=== PATIENT | male | born 1990 | race Caucasian/White ===

== ENCOUNTER 2018-09-26 01:19 | Inpatient (IN) ==
[2018-09-26] MEDS ORDERED: Acetaminophen 325 MG Tablet PO PRN (04:14)
[2018-09-26] MEDS ORDERED: Bisacodyl 10 MG Supp RECTAL PRN (04:14)
[2018-09-26] MEDS ORDERED: dilTIAZem Inj 125 MG in Sodium Chlor 0.9% Inj 100 ML IV.CONT PRN (09:05)
--- NOTE | 2018-09-26 09:09 | P.HP ---
History of Present Illness Primary Care Physician: No Primary Care Physician Chief Complaint: Chest Pain History of Present Illness: This is a pleasant 27 y/o male initially went to [facility] with chief complaint of shortness of breath and palpitations. He states that his daughter woke up screaming and startled him out of his sleep and ever since he is noticed his heart is been racing. He had one prior episode while he was in the however his symptoms alleviated in route to the hospital. This was a few years ago and he has not had any episodes until tonight. Denied any toxic habit, denies any medicine use. Started on Diltiazem Drip and transferred to Intensive Care Unit on [address] [place] consulted asw specialist. Inpatient Certification: I certify that the inpatient services were ordered in accordance with Medicare regulations governing the order. This includes certification that hospital inpatient services are reasonable and necessary and in the case of services not specified as inpatient-only under 42 CFR 419.22(n), that they are appropriately provided as inpatient services in accordance to with the 2-midnight benchmark under 43 CFR 412.3(e) Review of Systems All other systems reviewed negative except as stated in HPI PMFSH - History History Provided By: Patient - Medical History Medical History: Medical History (Last Updated 09/26/18 @ 01:34 by Jeri Templeton RN) Patient denies medical problems - Surgical History Surgical History: Surgical History (Last Updated 09/26/18 @ 01:34 by Jeri Templeton RN) Hx of shoulder surgery - Family History Family History: Family History (Last Updated 09/26/18 @ 15:19 by Roni Matthew MD) Mother Family history of hypertension - Tobacco History Second Hand Smoke Exposure: No Smoking Status: Never smoker - Alcohol History How Often Do You Have a Drink Containing Alcohol: Monthly or less - Substance Use History Substance History: No History of Abuse Medications and Allergies Active Medications: Active Medications Acetaminophen (Tylenol) 650 mg PO Q4H PRN PRN Reason: Temp > 100.4 Bisacodyl (Dulcolax Supp) 10 mg RECTAL DAILY PRN PRN Reason: SEVERE CONSITIPATION Chlorhexidine Gluconate (Chlorhexidine 2% Cloth) 3 pack TOPICAL DAILY@0400 [facility] Stop: 10/02/18 03:59 Chlorhexidine Gluconate (Chlorhexidine 2% Cloth) 3 pack TOPICAL DAILY@0400 PRN PRN Reason: Extra cloth needed Stop: 10/02/18 03:59 Ondansetron HCl (Zofran Inj) 4 mg IV.PUSH Q6H PRN PRN Reason: NAUSEA OR VOMITING Sennosides (Senokot) 17.2 mg PO Q12H PRN PRN Reason: Moderate Constipation Allergies Allergy/AdvReac Type Severity Reaction Status Date / Time No Known Allergies Allergy Verified 09/26/18 01:32 Home Medications Medication Instructions Recorded Confirmed Type No Known Home Medications 09/26/18 09/26/18 History Exam Narrative: GENERAL: No acute distress. SKIN: Focused skin assessment warm/dry. HEAD: Atraumatic. Normocephalic. EYES: Pupils equal and round. No scleral icterus. No injection or drainage. ENT: No nasal bleeding or discharge. Mucous membranes pink and moist. NECK: Trachea midline. No JVD. CARDIOVASCULAR: Irregular heart rate noted at in a regular rate of approximately 150 bpm RESPIRATORY: No accessory muscle use. Clear to auscultation. Breath sounds equal bilaterally. GASTROINTESTINAL: Abdomen soft, non-tender, nondistended. Hepatic and splenic margins not palpable. MUSCULOSKELETAL: No obvious deformities. No clubbing. No cyanosis. No edema. NEUROLOGICAL: Awake and alert. No obvious cranial nerve deficits. Motor grossly within normal limits. Normal speech. PSYCHIATRIC: Appropriate mood and affect; insight and judgment normal. Caprini VTE Risk Assessment Caprini VTE Risk Assessment: Moderate/High Risk (score >= 2) Caprini Risk Assessment Model: Point Value = 1 Point Value = 2 Point Value = 3 Point Value = 5 Age 41-60 Minor surgery BMI > 25 kg/m2 Swollen legs Varicose veins or History of unexplained or recurrent spontaneous Oral contraceptives or hormone replacement Sepsis (< 1 month) Serious lung disease, including pneumonia (< 1 month) Abnormal pulmonary function Acute myocardial infarction Congestive heart failure (< 1 month) History of inflammatory bowel disease Medical patient at bed rest Age 61-74 Arthroscopic surgery Major open surgery (> 45 min) Laparoscopic surgery (> 45 min) Malignancy Confined to bed (> 72 hours) Immobilizing plaster cast Central venous access Age >= 75 History of VTE Family history of VTE Factor V Leiden Prothrombin [id number] Lupus anticoagulant Anticardiolipin antibodies Elevated serum homocysteine Heparin-induced thrombocytopenia Other congenital or acquired thrombophilia Stroke (< 1 month) Elective arthroplasty Hip, pelvis, or leg fracture Acute spinal cord injury (< 1 month) Prophylaxis Regimen: Total Risk Factor Score Risk Level Prophylaxis Regimen 0-1 Low Early ambulation 2 Moderate Order ONE of the following: *Sequential Compression Device (SCD) *Heparin 5000 units SQ BID 3-4 Higher Order ONE of the following medications: *Heparin 5000 units SQ TID *Enoxaparin/Lovenox 40 mg SQ daily (WT < 150 kg, CrCl > 30 mL/min) *Enoxaparin/Lovenox 30 mg SQ daily (WT < 150 kg, CrCl > 10-29 mL/min) *Enoxaparin/Lovenox 30 mg SQ BID (WT < 150 kg, CrCl > 30 mL/min) AND/OR *Sequential Compression Device (SCD) 5 or more Highest Order ONE of the following medications: *Heparin 5000 units SQ TID (Preferred with Epidurals) *Enoxaparin/Lovenox 40 mg SQ daily (WT < 150 kg, CrCl > 30 mL/min) *Enoxaparin/Lovenox 30 mg SQ daily (WT < 150 kg, CrCl > 10-29 mL/min) *Enoxaparin/Lovenox 30 mg SQ BID (WT < 150 kg, CrCl > 30 mL/min) AND *Sequential Compression Device (SCD) Assessment and Plan - Plan 1. Atrial Fibrillation with RVR on Cardizem Drip also giving Metoprolol by mouth 25 mg BID Cardiology consult, Echocardiogram. awaiting final by specialist no other medical problems CHADS2 VASC Score 0 DVT prophylaxis with Lovenox. Code Status: Full code. Discussed Condition With: Patient, his and Nurse Miss Sue Discharge Planning: Once cleared by Cardiology
[2018-09-26 10:51] LABS: Chol/HDL Ratio 3.47 Ratio; HDL Cholesterol 46.1 mg/dL (40.0-60.0)
--- NOTE | 2018-09-26 11:37 | MB ---
cc: Sam Luna MD DATE: 09/26/2018 HISTORY OF PRESENT ILLNESS: Gavin is a very pleasant 27-year-old gentleman with no significant past medical history, who was startled by his daughter crying in the middle of the night and then developed palpitations. Was seen in [place] and transferred to [facility]. Reportedly, was in atrial fibrillation; however, his EKG is not available. However, the bedside telemetry shows atrial fibrillation with rapid ventricular response, despite being on a Cardizem drip. In discussing the patient's history, he denies any use of stimulants or decongestants, weight loss supplements, although he has lost weight 15 pounds in the recent history prior to admission. He denies excessive activity. He is controlling his weight with diet. He does drink coffee, but not any more than usual. He has palpitations and some dyspnea but denies chest pain, fevers, chills, cough, GI or bleeding, PND, orthopnea, syncope, or dizziness. PAST MEDICAL HISTORY: As per history of present illness ALLERGIES: HE HAS NO KNOWN ALLERGIES. SOCIAL HISTORY: He rarely drinks alcohol. Denies tobacco use. MEDICATIONS IN THE HOSPITAL: Cardizem drip. PHYSICAL EXAMINATION: VITAL SIGNS: Not charted. He does have a heart rate in the 120s in atrial fibrillation on the monitor. Again, there are no charted blood pressures in the computer. GENERAL: He is alert and oriented x3, in no acute distress. NECK: Supple. No JVD. No bruit. CARDIOVASCULAR: S1, S2. No murmurs, rubs or gallops. LUNGS: Clear to auscultation bilaterally. ABDOMEN: Soft, nontender, nondistended with positive bowel sounds. EXTREMITIES: Lower extremity edema. LABORATORY DATA: His EKG shows atrial fibrillation at a rate of 132 beats per minute. Intervals are normal. Chest x-ray, no acute cardiopulmonary disease. White count 9.4, hemoglobin 16.9, hematocrit 49.4, platelet count 206. INR is 1.0. Sodium 143, potassium 3.4, chloride 104, bicarbonate 29.0, BUN 18, creatinine 1.20. Troponin less than 0.02. LFTs normal. Tox screen is negative. DIAGNOSES: 1. Atrial fibrillation with rapid ventricular response. 2. Palpitations. 3. Dyspnea. DISCUSSION: By history and physical, the patient's CHADS-VASc score is 0. We will need to get a 2-D echocardiogram. Continue Cardizem drip. I am going to start him on beta anthony. He does not appear to have any obvious precipitating factor, although his TSH has not been checked, so we will need to check his TSH. Further recommendations based on the result of his 2-D echocardiogram, and a trend and heart rate and blood pressure and TSH results. MD MILA Ruiz/aniyah , 09:48 AM , 09:57 AM
[2018-09-26] MEDS ORDERED: Metoprolol Tartrate 25 MG Tablet PO SCH (12:30)
[2018-09-26 14:29] LABS: Hemoglobin A1c 4.7 % (4.3-6.0)
[2018-09-26] MEDS: Metoprolol Tartrate 50 MG Tablet PO SCH (21:13)
--- NOTE | 2018-09-26 22:37 | MB ---
cc: Bee Romero MD DATE: 09/26/2018 REFERRING PHYSICIAN: Dr. Luna. REASON FOR CONSULTATION: Management of atrial fibrillation. HISTORY OF PRESENT ILLNESS: Mr. Ortiz is 27-year-old gentleman, presented to [place] [facility] with a new onset atrial fibrillation. He was startled during sleep by his daughter who was crying and noticed palpitations along with dyspnea. He came to the [facility], was noted to have atrial fibrillation with tachycardia. He has been admitted, put on Cardizem drip, so far heart rate in the 80s. He denies any recent binge drinking or recreational drug usage. So far, no TIA or CVA in the past. Denies any energy drink usage. He rarely drinks. Again, there is no binge drinking. I reviewed the tele, so far showed atrial fibrillation with controlled rate. There is no obvious preexcitation. According to her, he had a similar episode about a year ago at [place], so far workup at that time did not show any significant findings. I did order the EKG today. Of note, his mother also had SVT, had ablation in the past. PAST MEDICAL HISTORY: As above. ALLERGIES: NO KNOWN DRUG ALLERGIES. SOCIAL HISTORY: He rarely drinks alcohol. He does not smoke, does not use any recreational drug usage. MEDICATIONS: Currently including Cardizem drip. REVIEW OF SYSTEMS: HEENT: Normal. GASTROINTESTINAL: No nausea or vomiting. GENITOURINARY: No dysuria. MUSCULOSKELETAL: Fatigue. CARDIOVASCULAR: As above. CHEST: Some dyspnea. ENDOCRINE: Normal. SKIN: Normal. PSYCHIATRIC: Normal. CENTRAL NERVOUS SYSTEM: No dizziness. PHYSICAL EXAMINATION: VITAL SIGNS: The patient has blood pressure of 105/60 with pulse in the 80s on Cardizem drip. O2 saturation is 99%. HEENT: Normal oral exam. PERRLA. ENDOCRINE: There is no thyroid enlargement. LYMPHATICS: There is no lymphadenopathy. RESPIRATORY: Decreased breath sounds bilaterally, but no crackles. CARDIOVASCULAR: Irregular. No tachycardia. Heart rate controlled. No loud murmurs. GASTROINTESTINAL: Active bowel sounds in all 4 quadrants. GENITOURINARY: Deferred. MUSCULOSKELETAL: All range of motion intact. SKIN: There is no ecchymosis. PSYCHIATRIC: The patient has good mood and good judgment. ASSESSMENT: 1. New onset atrial fibrillation with tachycardia. 2. Palpitations and dyspnea. PLAN: I agree with Dr. Luna. I will get an echocardiogram to assess LV systolic function, valve function, but he did have echocardiogram, which was done about a year ago in [place]. According to him, it did not reveal any significant findings. I will add aspirin 162 mg daily and increase metoprolol to 50 mg b.i.d. if the BP can tolerate and start the Cardene drip. Hopefully, he will convert soon. If he does not convert, may consider anticoagulation such as Eliquis or Xarelto. Consider NICKY and cardioversion versus ablation for the future. We will also check the thyroid function including TSH. Again, the patient denied binge drinking. So far, there is no preexcitation seen. I ordered an EKG, but there is a possibility of concealed bypass tract, which can predispose him for atrial fibrillation. Hopefully, he can go home over the weekend and have a close outpatient followup. I would like to thank Dr. Luna for letting me participate in the care of Mr. Ortiz. Bee Romero MD HW/sv/do , 08:22 PM , 08:33 PM
[2018-09-27] MEDS ORDERED: Chlorhexidine Gluconate 2% 1 Pack (2 Cloths) TOPICAL PRN (04:00)
[2018-09-27] MEDS: Chlorhexidine Gluconate 2% 1 Pack (2 Cloths) TOPICAL SCH (04:40)
[2018-09-27 05:05] LABS: Anion Gap 7 meq/L (5-15); Aspartate Aminotransferase 13 U/L (15-37); Blood Urea Nitrogen 16 mg/dL (7-18); Calcium 8.8 mg/dL (8.5-10.1); Carbon Dioxide 29.4 meq/L (21.0-32.0); Chloride 104 meq/L (98-107); Glomerular Filtration Rate 75 mL/min (>89); Glucose,Random 90 mg/dL (74-106); Potassium 4.4 meq/L (3.5-5.1); Sodium 140 meq/L (136-145)
[2018-09-27 05:16] LABS: Alanine Aminotransferase 23 U/L (12-78); Alkaline Phosphatase 80 U/L (45-117); Free T4 (Free Thyroxine) 0.93 ng/dL (0.76-1.46); Total Protein 7.8 g/dL (6.4-8.2)
[2018-09-27] MEDS: Metoprolol Tartrate 50 MG Tablet PO SCH (08:47)
--- NOTE | 2018-09-27 09:26 | P.PNCA ---
Subjective Interval history: alert in nad Medications and Allergies Active Medications: Active Medications Acetaminophen (Tylenol) 650 mg PO Q4H PRN PRN Reason: Temp > 100.4 Aspirin (Aspirin Chew) 162 mg PO DAILY [facility] Last Admin: 09/27/18 08:47 Dose: 81 mg Bisacodyl (Dulcolax Supp) 10 mg RECTAL DAILY PRN PRN Reason: SEVERE CONSITIPATION Chlorhexidine Gluconate (Chlorhexidine 2% Cloth) 3 pack TOPICAL DAILY@0400 [facility] Stop: 10/02/18 03:59 Last Admin: 09/27/18 04:40 Dose: Not Given Chlorhexidine Gluconate (Chlorhexidine 2% Cloth) 3 pack TOPICAL DAILY@0400 PRN PRN Reason: Extra cloth needed Stop: 10/02/18 03:59 Digoxin (Lanoxin Inj) 500 mcg IV.PUSH ONCE ONE Stop: 09/27/18 09:24 Metoprolol Tartrate (Lopressor) 50 mg PO BID [facility] Last Admin: 09/27/18 08:47 Dose: 50 mg Ondansetron HCl (Zofran Inj) 4 mg IV.PUSH Q6H PRN PRN Reason: NAUSEA OR VOMITING Sennosides (Senokot) 17.2 mg PO Q12H PRN PRN Reason: Moderate Constipation Allergies Allergy/AdvReac Type Severity Reaction Status Date / Time No Known Allergies Allergy Verified 09/26/18 01:32 Home Medications Medication Instructions Recorded Confirmed Type No Known Home Medications 09/26/18 09/26/18 History Physical Exam Vital signs: Vital Signs 09/26/18 12:00 09/26/18 16:00 09/26/18 19:30 Temperature 98.5 F 98.7 F Pulse Rate 116 H 116 H Respiratory Rate 17 17 Blood Pressure 99/67 L 122/71 Pulse Oximetry 98 97 98 09/26/18 20:00 09/26/18 21:35 09/26/18 22:00 Temperature 98.3 F Pulse Rate 80 75 76 Respiratory Rate 19 Blood Pressure 105/57 L Pulse Oximetry 98 09/26/18 23:00 09/27/18 00:00 09/27/18 01:00 Temperature 98.0 F Pulse Rate 81 84 76 Respiratory Rate 18 Blood Pressure 116/62 Pulse Oximetry 99 09/27/18 02:00 09/27/18 03:00 09/27/18 04:00 Temperature 98.2 F Pulse Rate 82 68 72 Respiratory Rate 16 Blood Pressure 112/72 Pulse Oximetry 100 09/27/18 05:00 09/27/18 06:00 Temperature Pulse Rate 78 102 H Respiratory Rate Blood Pressure Pulse Oximetry Intake & Output 09/26/18 09/27/18 09/27/18 18:59 06:59 18:59 Intake Total 365 / 365 Balance 365 / 365 Weight 95.5 kg Intake: IV 125 / 125 Cardizem Inj 125 MG In NS Inj 125 / 125 100 ML @ 5 MG/HR 5 mls/hr IV. CONT TITRATE PRN Rx#:[id number] Oral 240 / 240 Other: # Voids 2 Date of Last Bowel Movement 09/25/18 Weight On Admission 95.5 kg - Constitutional no acute distress - Routine HEENT Exam Head: Present: normocephalic - Routine Neck Exam Present: supple - Routine Respiratory Exam Present: CTA bilaterally - Routine Cardiovascular Exam Present: S1, S2 - Routine Abdominal Exam Present: soft - Routine Extremities Exam Comments: no benita Results 09/27/18 03:41 Cardiac Enzymes 09/27/18 Range/Units 03:41 AST 13 L (15-37) U/L Lipids 09/26/18 Range/Units 10:10 Triglycerides 91 (42-150) mg/dL Cholesterol 160 (120-200) mg/dL HDL Cholesterol 46.1 (40.0-60.0) mg/dL Cholesterol/HDL Ratio 3.47 Ratio Comprehensive Metabolic Panel 09/27/18 Range/Units 03:41 Sodium 140 (136-145) meq/L Potassium 4.4 D (3.5-5.1) meq/L Chloride 104 (98-107) meq/L Carbon Dioxide 29.4 (21.0-32.0) meq/L BUN 16 (7-18) mg/dL Creatinine 1.18 (0.60-1.30) mg/dL Calcium 8.8 (8.5-10.1) mg/dL AST 13 L (15-37) U/L ALT 23 (12-78) U/L Alkaline Phosphatase 80 (45-117) U/L Total Protein 7.8 (6.4-8.2) g/dL Albumin 4.0 (3.4-5.0) g/dL Intake and Output 1109/27/18 09/27/18 22:59 06:59 14:59 Intake Total 365 / 365 Balance 365 365 Intake: IV 125 / 125 Cardizem Inj 125 MG In NS Inj 125 / 125 100 ML @ 5 MG/HR 5 mls/hr IV. CONT TITRATE PRN Rx#:[id number] Oral 240 / 240 Other: # Voids 2 Date of Last Bowel Movement 09/25/18 Weight 95.5 kg Weight On Admission 95.5 kg Assessment and Plan - Assessment (1) Atrial fibrillation Code(s): I48.91 - Unspecified atrial fibrillation Status: Acute - Plan 1.) Atrial fib - still with rvr, bp relatively low to increase lopressor, will try digoxin .5 mg iv, f/u echo, tsh wnl, Dr Romero following, continue aspirin 162 mg qd
[2018-09-27] MEDS ORDERED: Sodium Chloride 0.9% 2 ML Flush PRN IV.FLUSH (09:51)
[2018-09-27] MEDS ORDERED: Digoxin Inj 500 MCG/2 ML Ampul IV.PUSH ONE (10:00)
--- NOTE | 2018-09-27 11:18 | ECHRPT ---
Indication: Atrial Fib and Flutter CONCLUSIONS Normal left ventricular size. Wall thickness is normal. The left ventricular systolic function is normal with an estimated ejection fraction in the range of 55-60%. Trace mitral valve regurgitation. There is trace tricuspid valve regurgitation. The estimated pulmonary arterial pressure is 34 mmHg. BP: 118 / 62 HR: 111 Rhythm: MEASUREMENTS (Male / Female) Normal Values Technical Quality:Fair 2D ECHO LV Diastolic Diameter PLAX 4.7 cm 4.2 - 5.9 / 3.9 - 5.3 cm LV Systolic Diameter PLAX 3.0 cm IVS Diastolic Thickness 1.0 cm 0.6 - 1.0 / 0.6 - 0.9 cm LVPW Diastolic Thickness 1.0 cm 0.6 - 1.0 / 0.6 - 0.9 cm LV Relative Wall Thickness 0.4 RV Internal Dim ED PLAX 2.4 cm LVOT Diameter 2.2 cm Aortic Root Diameter 3.0 cm LA Systolic Diameter LX 2.7 cm 3.0 - 4.0 / 2.7 - 3.8 cm DOPPLER AV Peak Velocity 132.0 cm/s AV Peak Gradient 7.0 mmHg LVOT Peak Velocity 102.0 cm/s LVOT Peak Gradient 4.2 mmHg AV Area Cont Eq pk 2.9 cm Mitral E Point Velocity 69.1 cm/s LV E' Lateral Velocity 17.0 cm/s Mitral E to LV E' Lateral Ratio 4.1 LV E' Septal Velocity 15.3 cm/s Mitral E to LV E' Septal Ratio 4.5 TR Peak Velocity 244.0 cm/s TR Peak Gradient 23.8 mmHg Right Atrial Pressure 10.0 mmHg Pulmonary Artery Systolic Pressu 33.8 mmHg Right Ventricular Systolic Press 33.8 mmHg PV Peak Velocity 113.0 cm/s PV Peak Gradient 5.1 mmHg FINDINGS LEFT VENTRICLE Normal left ventricular size. Wall thickness is normal. The left ventricular systolic function is normal with an estimated ejection fraction in the range of 55-60%. RIGHT VENTRICLE Normal right ventricular size and systolic function. LEFT ATRIUM The left atrial size is normal. RIGHT ATRIUM The right atrial size is normal. ATRIAL SEPTUM Normal atrial septal thickness without atrial level shunting by limited color doppler interrogation. AORTA The aortic root and proximal ascending aorta are normal in size on limited imaging. MITRAL VALVE Trace mitral valve regurgitation. AORTIC VALVE Trileaflet aortic valve. No aortic valve stenosis or regurgitation. TRICUSPID VALVE There is trace tricuspid valve regurgitation. The estimated pulmonary arterial pressure is 34 mmHg. PULMONARY VALVE No pulmonary valve regurgitation or stenosis. VESSELS The inferior vena cava is normal in size. PERICARDIUM No pericardial effusion. Jayjay Jackson MD, FACC (Electronically Signed) Final Date:26 September 2018 17:30
--- NOTE | 2018-09-27 14:18 | P.PN ---
Subjective Interval history: This is a pleasant 27 y/o male initially went to [facility] with chief complaint of shortness of breath and palpitations. He states that his daughter woke up screaming and startled him out of his sleep and ever since he is noticed his heart is been racing. He had one prior episode while he was in the however his symptoms alleviated in route to the hospital. This was a few years ago and he has not had any episodes until tonight. Denied any toxic habit, denies any medicine use. Started on Diltiazem Drip and transferred to Intensive Care Unit on [address] consulted student finance specialist. 09/27: discussed with nurse Miss Oconnell, he is with his and children in the room, no new complaint wants to go home he continue with Atrial Fibrillation with RVR, continue Cardizem, Digoxin and BB, Electrophysiology specialist and Cardiology following may need NICKY for Ablation. no nausea, vomit or diarrhea, no chest pain. Physical Exam Vital signs: Vital Signs 09/26/18 16:00 09/26/18 19:30 09/26/18 20:00 Temperature 98.7 F 98.3 F Pulse Rate 116 H 80 Respiratory Rate 17 19 Blood Pressure 122/71 105/57 L Pulse Oximetry 97 98 98 09/26/18 21:35 09/26/18 22:00 09/26/18 23:00 Temperature 98.0 F Pulse Rate 75 76 81 Respiratory Rate 18 Blood Pressure 116/62 Pulse Oximetry 99 09/27/18 00:00 09/27/18 01:00 09/27/18 02:00 Temperature Pulse Rate 84 76 82 Respiratory Rate Blood Pressure Pulse Oximetry 09/27/18 03:00 09/27/18 04:00 09/27/18 05:00 Temperature 98.2 F Pulse Rate 68 72 78 Respiratory Rate 16 Blood Pressure 112/72 Pulse Oximetry 100 09/27/18 06:00 09/27/18 07:00 09/27/18 08:00 Temperature 98.6 F Pulse Rate 102 H 96 H 112 H Respiratory Rate 17 Blood Pressure 119/68 Pulse Oximetry 99 09/27/18 09:00 09/27/18 09:46 09/27/18 11:00 Temperature 97.1 F L Pulse Rate 99 H 123 H 100 H Respiratory Rate 18 Blood Pressure 120/50 L Pulse Oximetry 100 09/27/18 12:00 09/27/18 13:00 Temperature Pulse Rate 112 H 126 H Respiratory Rate Blood Pressure Pulse Oximetry Intake & Output 09/26/18 09/27/18 09/27/18 18:59 06:59 18:59 Intake Total 365 / 365 Balance 365 / 365 Weight 95.5 kg Intake: IV 125 / 125 Cardizem Inj 125 MG In NS Inj 125 / 125 100 ML @ 5 MG/HR 5 mls/hr IV. CONT TITRATE PRN Rx#:[id number] Oral 240 / 240 Other: # Voids 2 Date of Last Bowel Movement 09/25/18 Weight On Admission 95.5 kg Narrative: GENERAL: No acute distress. SKIN: Focused skin assessment warm/dry. HEAD: Atraumatic. Normocephalic. EYES: Pupils equal and round. No scleral icterus. No injection or drainage. ENT: No nasal bleeding or discharge. Mucous membranes pink and moist. NECK: Trachea midline. No JVD. CARDIOVASCULAR: Irregular heart rate noted at in a regular rate of approximately 150 bpm RESPIRATORY: No accessory muscle use. Clear to auscultation. Breath sounds equal bilaterally. GASTROINTESTINAL: Abdomen soft, non-tender, nondistended. Hepatic and splenic margins not palpable. MUSCULOSKELETAL: No obvious deformities. No clubbing. No cyanosis. No edema. NEUROLOGICAL: Awake and alert. No obvious cranial nerve deficits. Motor grossly within normal limits. Normal speech. PSYCHIATRIC: Appropriate mood and affect; insight and judgment normal. Results - Labs CBC & Chem 7: 09/27/18 03:41 Laboratory Results - last 24 hr 09/26/18 09/26/18 09/27/18 10:10 Unknown 03:41 Sodium 140 Potassium 4.4 D Chloride 104 Carbon Dioxide 29.4 Anion Gap 7 BUN 16 Creatinine 1.18 Estimated GFR 75 L Random Glucose 90 Hemoglobin A1c 4.7 Calcium 8.8 Total Bilirubin 0.9 AST 13 L ALT 23 Alkaline Phosphatase 80 Total Protein 7.8 Albumin 4.0 TSH 1.280 Free T4 0.93 Nasal Screen MRSA (PCR) Not detected - Procedures None Assessment and Plan - Plan 1. Atrial Fibrillation with RVR on Cardizem Drip also giving Metoprolol by mouth 25 mg BID Cardiology consult, Echocardiogram. awaiting final by specialist no other medical problems CHADS2 VASC Score 0 Seen by student finance specialist Doctor Luna recommended Digoxin 0.5 mg IV following Echocardiogram, TSH within normal limits, continue Aspirin 162 mg daily. Seen by Doctor Nick for new onset of Atrial Fibrillation awaiting for echocardiogram, he added aspirin 162 mg, increase metoprolol to 50 mg BID, if no conversion will need Eliquis or Xarelto, consider NICKY and cardioversion. DVT prophylaxis with Lovenox. Code Status: Full code. Discussed Condition With: Patient, his and children in the room and nurse miss Oconnell. Discharge Planning: Once cleared by Cardiology
--- NOTE | 2018-09-27 14:34 | ECG ---
Date Performed: 09/26/2018 Time Performed: 21:54:54 PTAGE: 27 years EKG: Atrial Fibrillation With controlled ventricular response ST wave changes anterolaterally, m ost likely early replorization NO PREVIOUS TRACING Clinical correlation is recommended DOCTOR: Farzad Belle Interpretating Date/Time 09/27/2018 14:33:15
[2018-09-27] MEDS: Metoprolol Tartrate 25 MG Tablet PO SCH (20:07)
[2018-09-27] MEDS: Sodium Chloride 0.9% 2 ML Flush BID IV.FLUSH SCH (20:08)
[2018-09-28] MEDS: Chlorhexidine Gluconate 2% 1 Pack (2 Cloths) TOPICAL SCH (06:33)
--- NOTE | 2018-09-28 08:28 | P.PN ---
Subjective Interval history: This is a pleasant 27 y/o male initially went to [facility] with chief complaint of shortness of breath and palpitations. He states that his daughter woke up screaming and startled him out of his sleep and ever since he is noticed his heart is been racing. He had one prior episode while he was in the however his symptoms alleviated in route to the hospital. This was a few years ago and he has not had any episodes until tonight. Denied any toxic habit, denies any medicine use. Started on Diltiazem Drip and transferred to Intensive Care Unit on [facility] [place] consulted refractory specialist. 09/27: discussed with nurse Miss Oconnell, he is with his and children in the room, no new complaint wants to go home he continue with Atrial Fibrillation with RVR, continue Cardizem, Digoxin and BB, Electrophysiology specialist and Cardiology following may need NICKY for Ablation. no nausea, vomit or diarrhea, no chest pain. 09/28: Stable in his bedroom, no nausea, vomit or diarrhea, okay to discharge from refractory specialist standpoint. continue with Atrial Fibrillation now controlled rate. Physical Exam Vital signs: Vital Signs 09/27/18 09:00 09/27/18 09:46 09/27/18 11:00 Temperature 97.1 F L Pulse Rate 99 H 123 H 100 H Respiratory Rate 18 Blood Pressure 120/50 L Pulse Oximetry 100 09/27/18 12:00 09/27/18 13:00 09/27/18 14:00 Temperature Pulse Rate 112 H 126 H 116 H Respiratory Rate Blood Pressure Pulse Oximetry 09/27/18 15:00 09/27/18 15:11 09/27/18 17:00 Temperature 98.3 F Pulse Rate 133 H 118 H 130 H Respiratory Rate 20 Blood Pressure 113/61 Pulse Oximetry 100 09/27/18 17:41 09/27/18 19:00 09/27/18 20:00 Temperature 98.2 F Pulse Rate 120 H 116 H 78 Respiratory Rate 16 Blood Pressure 111/63 Pulse Oximetry 100 09/27/18 21:00 09/27/18 22:00 09/27/18 23:00 Temperature 98.0 F Pulse Rate 60 56 L 57 L Respiratory Rate 16 Blood Pressure 100/50 L Pulse Oximetry 100 09/28/18 00:00 09/28/18 01:00 09/28/18 02:00 Temperature Pulse Rate 61 61 79 Respiratory Rate Blood Pressure Pulse Oximetry 09/28/18 03:00 09/28/18 04:00 09/28/18 05:00 Temperature 98.2 F Pulse Rate 65 72 75 Respiratory Rate 18 Blood Pressure 108/65 Pulse Oximetry 100 09/28/18 06:00 09/28/18 07:00 Temperature Pulse Rate 66 57 L Respiratory Rate Blood Pressure Pulse Oximetry Intake & Output 09/27/18 09/28/18 09/28/18 18:59 06:59 18:59 Intake Total 900 / 900 720 / 720 Balance 900 / 900 720 / 720 Weight 93.6 kg Intake: Oral 900 / 900 720 / 720 Other: # Voids 3 3 Date of Last Bowel Movement 09/27/18 09/27/18 Narrative: GENERAL: No acute distress. SKIN: Focused skin assessment warm/dry. HEAD: Atraumatic. Normocephalic. EYES: Pupils equal and round. No scleral icterus. No injection or drainage. ENT: No nasal bleeding or discharge. Mucous membranes pink and moist. NECK: Trachea midline. No JVD. CARDIOVASCULAR: Irregular heart rate and rhythm. RESPIRATORY: No accessory muscle use. Clear to auscultation. Breath sounds equal bilaterally. GASTROINTESTINAL: Abdomen soft, non-tender, nondistended. Hepatic and splenic margins not palpable. MUSCULOSKELETAL: No obvious deformities. No clubbing. No cyanosis. No edema. NEUROLOGICAL: Awake and alert. No obvious cranial nerve deficits. Motor grossly within normal limits. Normal speech. PSYCHIATRIC: Appropriate mood and affect; insight and judgment normal. Results - Labs CBC & Chem 7: 09/27/18 03:41 - Procedures None Assessment and Plan - Plan 1. Atrial Fibrillation with RVR on Cardizem Drip also giving Metoprolol by mouth 25 mg BID Cardiology consult, Echocardiogram. awaiting final by specialist no other medical problems CHADS2 VASC Score 0 Seen by refractory specialist Doctor Jeremy recommended Digoxin 0.5 mg IV following Echocardiogram, TSH within normal limits, continue Aspirin 162 mg daily. Seen by Doctor Romero for new onset of Atrial Fibrillation awaiting for echocardiogram, he added aspirin 162 mg, increase metoprolol to 50 mg BID, if no conversion will need Eliquis or Xarelto, consider NICKY and cardioversion. Today recommended for discharge by refractory specialist DVT prophylaxis with Lovenox. Code Status: Full code. Discussed Condition With: patient and Nurse Discharge Planning: Discharge Home.
[2018-09-28] MEDS: Sodium Chloride 0.9% 2 ML Flush BID IV.FLUSH SCH (08:43)
[2018-09-28] MEDS: Metoprolol Tartrate 25 MG Tablet PO SCH (08:44)
--- NOTE | 2018-09-28 10:10 | P.DS ---
Date of admission: 09/26/18 07:50 Primary care physician: No Primary Care Physician Attending physician on discharge: Roni Matthew Anticipated date of discharge: 09/28/18 Brief History from admission: This is a pleasant 27 y/o male initially went to [facility] with chief complaint of shortness of breath and palpitations. He states that his daughter woke up screaming and startled him out of his sleep and ever since he is noticed his heart is been racing. He had one prior episode while he was in the however his symptoms alleviated in route to the hospital. This was a few years ago and he has not had any episodes until tonight. Denied any toxic habit, denies any medicine use. Started on Diltiazem Drip and transferred to Intensive Care Unit on [address] [place] consulted receivables specialist. DS: Diagnosis - Discharge Diagnosis (1) Atrial fibrillation Status: Acute DS: Summary Hospital Course: This is a pleasant 27 y/o male initially went to [facility] with chief complaint of shortness of breath and palpitations. He states that his daughter woke up screaming and startled him out of his sleep and ever since he is noticed his heart is been racing. He had one prior episode while he was in the however his symptoms alleviated in route to the hospital. This was a few years ago and he has not had any episodes until tonight. Denied any toxic habit, denies any medicine use. Started on Diltiazem Drip and transferred to Intensive Care Unit on [address] [place] consulted receivables specialist. 09/27: discussed with nurse Miss Oconnell, he is with his and children in the room, no new complaint wants to go home he continue with Atrial Fibrillation with RVR, continue Cardizem, Digoxin and BB, Electrophysiology specialist and Cardiology following may need NICKY for Ablation. no nausea, vomit or diarrhea, no chest pain. 09/28: Stable in his bedroom, no nausea, vomit or diarrhea, okay to discharge from receivables specialist standpoint. continue with Atrial Fibrillation now controlled rate. I have been called by Nurse Miss Morgan to discharge the patient as recommended today by Cardiology and plastic surgery specialist Doctor Nick. Assessment and Plan - Plan 1. Atrial Fibrillation with RVR on Cardizem Drip also giving Metoprolol by mouth 25 mg BID Cardiology consult, Echocardiogram. awaiting final by specialist no other medical problems CHADS2 VASC Score 0 Seen by receivables specialist Doctor Jeremy recommended Digoxin 0.5 mg IV following Echocardiogram, TSH within normal limits, continue Aspirin 162 mg daily. Seen by Doctor Nick for new onset of Atrial Fibrillation awaiting for echocardiogram, he added aspirin 162 mg, increase metoprolol to 50 mg BID, if no conversion will need Eliquis or Xarelto, consider NICKY and cardioversion. Today recommended for discharge by receivables specialist DVT prophylaxis with Lovenox. Code Status: Full code. Discussed Condition With: patient and Nurse Discharge Planning: Discharge Home. - Time Spent with Patient Total time spent providing and/or coordinating discharge services: Less than 30 minutes - Quality: VTE Deep Vein Thrombosis/Pulmonary Embolism Present on Admission: No Exam Vital signs: Vital Signs 09/27/18 11:00 09/27/18 12:00 09/27/18 13:00 Temperature 97.1 F L Pulse Rate 100 H 112 H 126 H Respiratory Rate 18 Blood Pressure 120/50 L Pulse Oximetry 100 09/27/18 14:00 09/27/18 15:00 09/27/18 15:11 Temperature 98.3 F Pulse Rate 116 H 133 H 118 H Respiratory Rate 20 Blood Pressure 113/61 Pulse Oximetry 100 09/27/18 17:00 09/27/18 17:41 09/27/18 19:00 Temperature 98.2 F Pulse Rate 130 H 120 H 116 H Respiratory Rate 16 Blood Pressure 111/63 Pulse Oximetry 100 09/27/18 20:00 09/27/18 21:00 09/27/18 22:00 Temperature Pulse Rate 78 60 56 L Respiratory Rate Blood Pressure Pulse Oximetry 09/27/18 23:00 09/28/18 00:00 09/28/18 01:00 Temperature 98.0 F Pulse Rate 57 L 61 61 Respiratory Rate 16 Blood Pressure 100/50 L Pulse Oximetry 100 09/28/18 02:00 09/28/18 03:00 09/28/18 04:00 Temperature 98.2 F Pulse Rate 79 65 72 Respiratory Rate 18 Blood Pressure 108/65 Pulse Oximetry 100 09/28/18 05:00 09/28/18 06:00 09/28/18 07:00 Temperature 98.4 F Pulse Rate 75 66 60 Respiratory Rate 18 Blood Pressure 112/62 Pulse Oximetry 100 09/28/18 08:00 09/28/18 09:00 Temperature Pulse Rate 78 90 Respiratory Rate Blood Pressure Pulse Oximetry Intake & Output 09/27/18 09/28/18 09/28/18 18:59 06:59 18:59 Intake Total 900 / 900 720 / 720 Balance 900 / 900 720 / 720 Weight 93.6 kg Intake: Oral 900 / 900 720 / 720 Other: # Voids 3 3 Date of Last Bowel Movement 09/27/18 09/27/18 Narrative: GENERAL: No acute distress. SKIN: Focused skin assessment warm/dry. HEAD: Atraumatic. Normocephalic. EYES: Pupils equal and round. No scleral icterus. No injection or drainage. ENT: No nasal bleeding or discharge. Mucous membranes pink and moist. NECK: Trachea midline. No JVD. CARDIOVASCULAR: Irregular heart rate and rhythm. RESPIRATORY: No accessory muscle use. Clear to auscultation. Breath sounds equal bilaterally. GASTROINTESTINAL: Abdomen soft, non-tender, nondistended. Hepatic and splenic margins not palpable. MUSCULOSKELETAL: No obvious deformities. No clubbing. No cyanosis. No edema. NEUROLOGICAL: Awake and alert. No obvious cranial nerve deficits. Motor grossly within normal limits. Normal speech. PSYCHIATRIC: Appropriate mood and affect; insight and judgment normal. Results Procedures completed during hospitalization: None Discharge Plan - Discharge Disposition Patient Disposition: Discharge Home - Discharge Condition Condition: Stable - Discharge Order Discharge Orders: Discharge Order (Routine); Ordered 09/28/18 Ordered By: Roni Matthew - Discharge Details Anticipated Discharge Date: 09/28/18 Discharge Comment: Follow with receivables specialist as scheduled. - Physicians Team Primary Care Provider: Primary Care Bri Estrada Attending Provider: Roni Matthew Other Providers: Sam Luna MD - Rxs /Orders / Referrals /Forms Prescriptions: New aspirin 81 mg Tablet,Chewable 162 mg PO DAILY Qty: 30 RF: 0 metoprolol tartrate 25 mg Tablet 75 mg PO BID Qty: 180 RF: 0 No Action No Known Home Medications Referrals: Primary Care Bri Estrada [Primary Care Provider] - See Instructions
--- NOTE | 2018-09-28 10:11 | P.PNCA ---
Subjective Interval history: assymptomatic in nad Medications and Allergies Active Medications: Active Medications Acetaminophen (Tylenol) 650 mg PO Q4H PRN PRN Reason: Temp > 100.4 Aspirin (Aspirin Chew) 162 mg PO DAILY [facility] Last Admin: 09/28/18 08:44 Dose: 162 mg Bisacodyl (Dulcolax Supp) 10 mg RECTAL DAILY PRN PRN Reason: SEVERE CONSITIPATION Chlorhexidine Gluconate (Chlorhexidine 2% Cloth) 3 pack TOPICAL DAILY@0400 [facility] Stop: 10/02/18 03:59 Last Admin: 09/28/18 06:33 Dose: Not Given Chlorhexidine Gluconate (Chlorhexidine 2% Cloth) 3 pack TOPICAL DAILY@0400 PRN PRN Reason: Extra cloth needed Stop: 10/02/18 03:59 Metoprolol Tartrate (Lopressor) 75 mg PO BID [facility] Last Admin: 09/28/18 08:44 Dose: 75 mg Ondansetron HCl (Zofran Inj) 4 mg IV.PUSH Q6H PRN PRN Reason: NAUSEA OR VOMITING Sennosides (Senokot) 17.2 mg PO Q12H PRN PRN Reason: Moderate Constipation Sodium Chloride (Ns Flush) 2 ml IV.FLUSH BID [facility] Last Admin: 09/28/18 08:43 Dose: 2 ml Sodium Chloride (Ns Flush) 2 ml IV.FLUSH PRN PRN PRN Reason: FLUSH AFTER USING IV ACCESS Allergies Allergy/AdvReac Type Severity Reaction Status Date / Time No Known Allergies Allergy Verified 09/26/18 01:32 Home Medications Medication Instructions Recorded Confirmed Type No Known Home Medications 09/26/18 09/26/18 History Physical Exam Vital signs: Vital Signs 09/27/18 11:00 09/27/18 12:00 09/27/18 13:00 Temperature 97.1 F L Pulse Rate 100 H 112 H 126 H Respiratory Rate 18 Blood Pressure 120/50 L Pulse Oximetry 100 09/27/18 14:00 09/27/18 15:00 09/27/18 15:11 Temperature 98.3 F Pulse Rate 116 H 133 H 118 H Respiratory Rate 20 Blood Pressure 113/61 Pulse Oximetry 100 09/27/18 17:00 09/27/18 17:41 09/27/18 19:00 Temperature 98.2 F Pulse Rate 130 H 120 H 116 H Respiratory Rate 16 Blood Pressure 111/63 Pulse Oximetry 100 09/27/18 20:00 09/27/18 21:00 09/27/18 22:00 Temperature Pulse Rate 78 60 56 L Respiratory Rate Blood Pressure Pulse Oximetry 09/27/18 23:00 09/28/18 00:00 09/28/18 01:00 Temperature 98.0 F Pulse Rate 57 L 61 61 Respiratory Rate 16 Blood Pressure 100/50 L Pulse Oximetry 100 09/28/18 02:00 09/28/18 03:00 09/28/18 04:00 Temperature 98.2 F Pulse Rate 79 65 72 Respiratory Rate 18 Blood Pressure 108/65 Pulse Oximetry 100 09/28/18 05:00 09/28/18 06:00 09/28/18 07:00 Temperature 98.4 F Pulse Rate 75 66 60 Respiratory Rate 18 Blood Pressure 112/62 Pulse Oximetry 100 09/28/18 08:00 09/28/18 09:00 Temperature Pulse Rate 78 90 Respiratory Rate Blood Pressure Pulse Oximetry Intake & Output 09/27/18 09/28/18 09/28/18 18:59 06:59 18:59 Intake Total 900 / 900 720 / 720 Balance 900 / 900 720 / 720 Weight 93.6 kg Intake: Oral 900 / 900 720 / 720 Other: # Voids 3 3 Date of Last Bowel Movement 09/27/18 09/27/18 - Constitutional no acute distress - Routine HEENT Exam Head: Present: normocephalic - Routine Neck Exam Present: supple, JVD - Routine Respiratory Exam Present: CTA bilaterally - Routine Cardiovascular Exam Present: S1, S2 - Routine Abdominal Exam Present: soft - Routine Extremities Exam Comments: no benita Results 09/27/18 03:41 Cardiac Enzymes 09/27/18 Range/Units 03:41 AST 13 L (15-37) U/L Lipids 09/26/18 Range/Units 10:10 Triglycerides 91 (42-150) mg/dL Cholesterol 160 (120-200) mg/dL HDL Cholesterol 46.1 (40.0-60.0) mg/dL Cholesterol/HDL Ratio 3.47 Ratio Comprehensive Metabolic Panel 09/27/18 Range/Units 03:41 Sodium 140 (136-145) meq/L Potassium 4.4 D (3.5-5.1) meq/L Chloride 104 (98-107) meq/L Carbon Dioxide 29.4 (21.0-32.0) meq/L BUN 16 (7-18) mg/dL Creatinine 1.18 (0.60-1.30) mg/dL Calcium 8.8 (8.5-10.1) mg/dL AST 13 L (15-37) U/L ALT 23 (12-78) U/L Alkaline Phosphatase 80 (45-117) U/L Total Protein 7.8 (6.4-8.2) g/dL Albumin 4.0 (3.4-5.0) g/dL Intake and Output 09/27/18 09/28/18 09/28/18 22:59 06:59 14:59 Intake Total 900 / 900 720 / 720 Balance 900 / 900 720 / 720 Intake: Oral 900 / 900 720 / 720 Other: # Voids 3 3 Date of Last Bowel Movement 09/27/18 09/27/18 09/27/18 Weight 93.6 kg Assessment and Plan - Assessment (1) Atrial fibrillation Code(s): I48.91 - Unspecified atrial fibrillation Status: Acute - Plan 1.) Atrial fib - now nsr, ok to dc on lopressor 75 mg bid, aspirin 162 mg qd, patient to call my office and Dr Romero's office to make appointment teo, d/w patient and nurse, he undertsands, tsh wnl,
== END 2018-09-28 12:15 | disposition home or self-care (01) ==
LOC: NEDDLT 01:19 → HIMC 01:19 → OBSVTOIN 07:50 → HCPC 21:30
PROVIDERS: ADMIT Internal Medicine; ATTEND Internal Medicine